=== PATIENT | female | born 1985 | race Caucasian/White ===

== ENCOUNTER 2016-12-19 21:21 | Emergency (ER) | payer BC, OTHER ==
[~2016-12-19] VITALS: Ht 154.9 cm; Wt 84.4 kg
[2016-12-19 21:27] VITALS: TEMP 36.8; Ht 154.9 cm; Wt 84.4 kg
[2016-12-19] MEDS ORDERED: NAPROXEN 250 MG TAB PO STA (21:34)
--- NOTE | 2016-12-19 22:22 | DIAGNOSTIC IMAGING REPORT ---
AP PELVIS AND RIGHT HIP 3 VIEWS CLINICAL HISTORY: Right hip pain status post trauma COMPARISON STUDY: No previous studies for comparison. FINDINGS: No fractures or dislocations are visualized. There is an S1 spina bifida occulta. IMPRESSION: No fractures identified. Electronically signed by: Mateo Rodriges M.D. 12/19/2016 10:20 PM Dictated Date/Time: 12/19/2016 10:19 PM
[2016-12-19] MEDS ORDERED: VNTHFA/IN INH (22:34)
[2016-12-19] MEDS ORDERED: PRLSR20 PO (22:34)
[2016-12-19] MEDS ORDERED: CZR25 PO (22:34)
[2016-12-19] MEDS ORDERED: SPR28 PO (22:34)
[2016-12-19] MEDS ORDERED: ACET-1256 PO (22:35)
[2016-12-19 22:45] VITALS: BP 142/96; PULSE 80; O2SAT 97
[2016-12-19] MEDS ORDERED: OXYCODONE IR HOME PACK PO ONE (22:45)
--- NOTE | 2016-12-20 03:06 | EMERGENCY ROOM VISIT NOTE ---
History First contact with patient: 21:30 Chief Complaint: HIP PAIN Stated Complaint: RT HIP/LEG PAIN History of Present Illness The patient is a 31 year old female who presents to the Emergency Room with complaints of right groin hip pain for the past week after falling in the bathroom. She describes the pain as aching, ranging in severity 6 out of 10 worse with movement and better with rest. Patient denies back pain, numbness, tingling, abdominal pain, urinary symptoms, vaginal itching or discharge, fever , chills, weakness. She is tolerate by mouth fluids and food. No prior fracture to this area. No IV drug abuse. Review of Systems See HPI for pertinent positives & negatives. A total of 10 systems reviewed and were otherwise negative. Past Medical/Surgical History Medical Problems: (1) Asthma (2) Chronic sinusitis Stage III kidney disease Family History Cancer Heart disease Social History Smoking Status: Current Some Day Smoker Alcohol Use: none Drug Use: none Marital Status: Occupation Status: employed Current/Historical Medications Scheduled Ethinyl Estrad/Norgestimate (Sprintec 28), 1 TAB PO DAILY Losartan Potassium (Losartan Potassium), 25 MG PO DAILY Omeprazole (Prilosec), 20 MG PO DAILY Scheduled PRN Acetaminophen (Tylenol), 1,000 MG PO Q6 PRN for Headache or Pain Albuterol Hfa (Ventolin Hfa), 2 PUFF INH Q4 PRN for SOB/Wheezing Allergies Coded Allergies: Venlafaxine (Verified Allergy, Mild, SWELLING RASH, 09/30/14) Amoxicillin (Verified Allergy, Unknown, HIVES, 09/30/14) BEE STING (Verified Allergy, Unknown, ANAPHYLAXIS, 09/30/14) Bupropion (Verified Allergy, Unknown, ., 09/30/14) Dust (Verified Allergy, Unknown, SHORTNESS OF BREATH, 09/30/14) Ethinyl Estradiol (Verified Allergy, Unknown, SHORTNESS OF BREATH, 09/30/14 ) Grass (Verified Allergy, Unknown, SHORTNESS OF BREATH, 09/30/14) Molds and Smuts (Verified Allergy, Unknown, SHORTNESS OF BREATH, 09/30/14) Norgestimate (Verified Allergy, Unknown, SHORTNESS OF BREATH, 09/30/14) Sulfa Drugs (Verified Allergy, Unknown, SHORTNESS OF BREATH, 09/30/14) Physical Exam Vital Signs Date Time Temp Pulse Resp B/P (MAP) Pulse Ox O2 Delivery O2 Flow Rate FiO2 12/19/16 22:45 80 17 142/96 97 12/19/16 21:45 90 17 150/100 97 Room Air 12/19/16 21:27 36.8 88 18 158/103 99 Room Air Pain Rating (0-10): 10.0 Physical Exam VITALS: Vitals are noted on the nurse's note and reviewed by myself. Vital signs stable. GENERAL: Pleasant female able to ambulate, in no acute distress, nondiaphoretic , well-developed well-nourished. SKIN: Capillary reflex less than 2 seconds. HEENT: Normocephalic. PERRLA. EOMI. Nares patent. Mucous membranes moist. Neck is supple without nuchal rigidity. HEART: Regular rate and rhythm without murmurs gallops or rubs. LUNGS: Clear to auscultation bilaterally without wheezes, rales or rhonchi. No retractions or accessory muscle use. ABDOMEN: Positive bowel sounds x 4. Normal tympanic percussion. Soft, nontender, without masses or organomegaly. Drake sign negative. No guarding or rebound tenderness. MUSCULOSKELETAL: No gross musculoskeletal defects. No pedal edema. No calf tenderness. Pelvis stable: Right groin tender to palpation with increased pain with range of motion of the right hip. No thoracic or lumbar tenderness on exam. +2 patellar reflexes bilaterally. 5 out of 5 strength throughout. NEURO: Patient was alert and oriented to person place and time. Normal sensation to light and sharp touch. No focal neurological deficits. Medical Decision & Procedures Medications Administered Medications (Trade) Dose Ordered Sig/Linette Route Start Time Stop Time Status Last Admin Dose Admin Naproxen (Naprosyn Tab) 500 mg NOW STAT PO 12/19/16 21:34 12/19/16 21:36 DC 12/19/16 21:43 500 MG Oxycodone HCl (Roxicodone Immediate Rel 5MG Home Pack) 1 homepack UD ONCE PO 12/19/16 22:45 12/19/16 22:46 DC 12/19/16 22:42 1 HOMEPACK ED Course Prior records/ancillary studies reviewed. Triage Nursing notes reviewed. Additional history obtained from family The patient's history was concerning for right groin pain. Differential diagnosis: Etiologies such as musculoskeletal, disc herniation, fracture, sprain, strain, metastatic disease, cord compression, discitis, infection, renal colic, gastrointestinal, acute exacerbation of chronic pain, sciatica, cauda equina, as well as others were entertained. Physical findings: As above. No focal neurologic findings noted. ER treatment provided: Naproxen, home pack of OxyIR On reassessment the patient felt better. Diagnostics interpreted by me: Imaging studies: X-rays negative for fracture of the hip and pelvis This appears to be consistent with right hip strain most likely from fall. Patient was neurovascularly and neurologically intact. No fractures on x-ray imaging. Patient was able to ambulate. She is advised to follow-up family care if symptoms persist or here in the ER sooner for severe pain, numbness, tingling, inability to walk, worsening signs or symptoms or as needed. The patient's physical examination and detailed history did not reveal any red flags for hip pain such as those listed in the differential diagnosis. Therefore advanced diagnostics and consultations were felt to be unwarranted. By the evaluation outlined above emergent etiologies such as fracture, aortic disease, metastatic disease, infection, renal colic, gastrointestinal, cord compression, cauda equina, as well as others were deemed relatively unlikely. The pt informed about the findings as listed above. All questions were answered and pleased with the treatment. Return instructions were outlined and the patient was discharged in stable condition. Outpatient prescription management: Oxy IR 5mg 1-2 po Q4 hrs prn Referral: The patient was referred back to primary care physician for follow-up in 2 to 3 days for a recheck of the current condition. Medical Decision As above Impression Primary Impression: Right hip pain Departure Information Dispostion Home / Self-Care Condition FAIR Referrals Dyllan Vincent D.O. Forms WORK / SCHOOL INSTRUCTIONS, HOME CARE DOCUMENTATION FORM, IMPORTANT VISIT INFORMATION Patient Instructions My [facility], ED Sprain Hip Additional Instructions DO NOT drive, drink alcohol, operate machinery, or perform dangerous activities today. You were given medications in the ER that can affect your ability to safely function or operate a vehicle. Oxycodone (OxyIR) 5mg: Take 1-2 pills every four hours for breakthrough pain. Avoid alcohol, operating machinery or dangerous equipment, working on ladders or roofs, DRIVING, or situations where being under the influence may be dangerous. It is recommended to use an [id number]-[id number] stool softener such as Colace, 100mg twice daily while taking this medication to avoid constipation. Ibuprofen(Motrin, Advil) may be used for fever or pain. Use 600mg every six hours as needed. Take with food. Avoid using more than 2400mg in a 24 hour period. Do not use 2400mg per day for more than three consecutive days without physician direction. Prolonged inappropriate use can lead to stomach upset or ulcers. This medication can be taken if you need to drive, work, or perform activities which may be dangerous when taking narcotic pain medication. (AND/OR) Acetaminophen(Tylenol) may be used for fever or pain. Use 1000mg every six hours as needed. Avoid using more than 3000mg in a 24 hour period. This medication can be taken if you need to drive, work, or perform activities which may be dangerous when taking narcotic pain medication. Rest and avoid heavy lifting until your symptoms resolve and then gradually return to full activity. A good rule of thumb is if it hurts your back to perform a certain activity, then it should be avoided until you are healthy again. A heating pad, warm compresses, or a hot shower may help with tight muscles and can be done several times a day as needed. Continue current medications. Return to the ER immediately for any numbness, tingling, severe pain, loss of control of your bowels or bladder, inability to walk, or as needed. Follow up with your primary care physician/orthopedics within 3-5 days for a recheck of your current condition.
== END 2016-12-19 22:45 | disposition home or self-care (01) ==
LOC: C.EDB 21:21 → C.EDA 22:45
DX: M25.551 Pain in right hip (principal); W19.XXXA Unspecified fall, initial encounter; Y92.012 Bathroom of single-family (private) house as the place of occurrence of the external cause; J45.909 Unspecified asthma, uncomplicated; J32.9 Chronic sinusitis, unspecified; N18.3 Chronic kidney disease, stage 3 (moderate); Z80.9 Family history of malignant neoplasm, unspecified; Z82.49 Family history of ischemic heart disease and other diseases of the circulatory system; F17.210 Nicotine dependence, cigarettes, uncomplicated; Z79.899 Other long term (current) drug therapy